=== PATIENT | male | born 1995 | race Two or more races ===

== ENCOUNTER 2020-05-19 13:47 | Inpatient (IN) | payer OTHER ==
[~2020-05-19] VITALS: Ht 182.9 cm; Wt 76.2 kg
[2020-05-19 16:41] LABS: BASOPHILS % (AUTO) 0.3 % (0.0-2.0); EOSINOPHILS % (AUTO) 0.3 % (1.0-6.0); HEMOGLOBIN 16.5 g/dL (13.5-17.5); LYMPHOCYTES # (AUTO) 1.8 K/uL (1.0-4.8); LYMPHOCYTES % (AUTO) 18.6 % (22.0-44.0); MEAN CORPUSCULAR HEMOGLOBIN 29.2 pg (26.0-34.0); MEAN CORPUSCULAR VOLUME 89 fL (80-100); MONOCYTES # (AUTO) 0.6 K/uL (0.1-1.0); MONOCYTES % (AUTO) 6.7 % (2.0-9.0); NEUTROPHILS # (AUTO) 7.1 K/uL (1.8-7.7); NEUTROPHILS % (AUTO) 74.1 % (40.0-70.0); PLATELET COUNT (AUTO) 209 K/uL (150-450); RED BLOOD CELL COUNT(AUTO) 5.64 MIL/uL (4.50-5.90); RED CELL DISTRIBUTION WIDTH 15.2 % (11.5-14.5)
[2020-05-19 16:48] LABS: ANION GAP 12 mmol/L (8-16); CALCIUM, TOTAL 9.9 mg/dL (8.8-10.5); CARBON DIOXIDE 27 mmol/L (22-29); CHLORIDE 103 mmol/L (98-107); CREATININE 1.07 mg/dL (0.60-1.30); GLOMERULAR FILTR. RATE CALC > 60 mL/min (>60); GLUCOSE,RANDOM 88 mg/dL (70-110); SODIUM SERUM 142 mmol/L (136-145); UREA NITROGEN, BLOOD 10 mg/dL (7-18)
[2020-05-19 16:54] LABS: ALANINE AMINOTRANSFERASE 18 U/L (12-78); ALBUMIN 4.6 g/dL (3.4-5.0); ALKALINE PHOSPHATASE 69 U/L (46-116); ASPARTATE AMINOTRANSFERASE 11 U/L (15-37); BILIRUBIN,TOTAL 1.2 mg/dL (0.1-1.0); TOTAL PROTEIN, SERUM 7.9 g/dL (6.4-8.2)
[2020-05-19] MEDS ORDERED: HALOPERIDOL LACTATE 5 MG/ML VIAL IM ONE (17:00)
[2020-05-19] MEDS ORDERED: LORazepam 2 MG/ML VIAL IM ONE (17:00)
[2020-05-19] MEDS ORDERED: HALOPERIDOL 5 MG TABLET PO ONE (17:00)
[2020-05-19] MEDS ORDERED: LORazepam 2 MG TABLET PO ONE (17:00)
[2020-05-19 19:19] LABS: COVID AG,FIA SOURCE NASOPHARYNGEAL
[2020-05-19] MEDS ORDERED: INFLUENZA VIRUS VACCINE QVS 2020-21 (6MO+)/PF 60 MCG/0.5 ML SYRINGE IM ONE (22:30)
[2020-05-20] MEDS ORDERED: MAGNESIUM HYDROXIDE SUSPENSION 30 ML UDCUP PO PRN (07:45)
[2020-05-20] MEDS ORDERED: DOCUSATE SODIUM 100 MG CAPSULE PO PRN (07:45)
[2020-05-20] MEDS ORDERED: PETROLATUM,WHITE 28 GM JELLY TP PRN (07:45)
[2020-05-20] MEDS ORDERED: GuaiFENesin/D-METHORPHAN [SUGAR-FREE] 200-20MG/10 ML SYRUP UDCUP PO PRN (07:45)
[2020-05-20] MEDS ORDERED: LOPERAMIDE HCL 2 MG CAPSULE PO PRN (07:45)
[2020-05-20] MEDS ORDERED: CloNIDine HCL 0.1 MG TABLET PO PRN (07:45)
[2020-05-20] MEDS ORDERED: ALBUTEROL SULFATE HFA 90 MCG/PUFF 8 GM INHALER IH PRN (07:45)
[2020-05-20] MEDS ORDERED: IBUPROFEN 400 MG TABLET PO PRN (07:45)
[2020-05-20] MEDS ORDERED: ONDANSETRON HCL 4 MG TABLET PO PRN (07:45)
[2020-05-20] MEDS ORDERED: MAG HYDROX/AL HYDROX/SIMETH ES 30 ML SUSPENSION UDCUP PO PRN (07:45)
[2020-05-20 09:24] LABS: CHOL/HDL RATIO 3.8 (4.2-7.3)
[2020-05-20] MEDS: HALOPERIDOL 5 MG TABLET PO PRN (21:19)
[2020-05-20] MEDS: LORazepam 2 MG TABLET PO PRN (21:19)
[2020-05-20] MEDS: ZOLPIDEM TARTRATE 10 MG TABLET PO PRN (22:34)
[2020-05-21] MEDS: HALOPERIDOL 5 MG TABLET PO PRN ×3 (03:13→18:22)
[2020-05-21] MEDS: LORazepam 2 MG TABLET PO PRN ×3 (03:13→18:22)
[2020-05-21 08:22] VITALS: BP 93/68
[2020-05-21] MEDS ORDERED: OLANZapine 5 MG TABLET PO SCH (09:00)
[2020-05-21] MEDS: NICOTINE 14 MG/24 HOUR PATCH TD PRN (09:05)
[2020-05-21 09:07] VITALS: BP 106/66
[2020-05-21] MEDS: OLANZapine 10 MG TABLET PO SCH (16:39)
[2020-05-21 16:41] VITALS: BP 97/66
[2020-05-21] MEDS: ZOLPIDEM TARTRATE 10 MG TABLET PO PRN (21:40)
[2020-05-22 01:26] VITALS: BP 103/68
[2020-05-22] MEDS: OLANZapine 10 MG TABLET PO SCH ×2 (08:27→16:19)
[2020-05-22] MEDS: HALOPERIDOL 5 MG TABLET PO PRN ×3 (09:28→20:11)
[2020-05-22] MEDS: LORazepam 2 MG TABLET PO PRN ×3 (09:28→20:12)
[2020-05-22] MEDS: ZOLPIDEM TARTRATE 10 MG TABLET PO PRN (21:36)
[2020-05-22] MEDS: ACETAMINOPHEN 325 MG TABLET PO PRN (23:48)
[2020-05-23 01:09] VITALS: BP 127/86
[2020-05-23] MEDS: HALOPERIDOL 5 MG TABLET PO PRN ×2 (03:06→12:50)
[2020-05-23 08:21] VITALS: BP 119/78
[2020-05-23] MEDS: OLANZapine 10 MG TABLET PO SCH ×2 (09:54→16:41)
[2020-05-23] MEDS: LORazepam 2 MG TABLET PO PRN ×3 (09:54→23:39)
[2020-05-23 16:11] VITALS: BP 124/72
[2020-05-23] MEDS ORDERED: CETIRIZINE HCL 10 MG TABLET PO PRN (18:15)
[2020-05-23] MEDS ORDERED: LORATADINE 10 MG TABLET PO PRN (19:15)
[2020-05-23] MEDS: ZOLPIDEM TARTRATE 10 MG TABLET PO PRN (20:49)
[2020-05-24 01:50] VITALS: BP 116/69
[2020-05-24 08:39] VITALS: BP 124/86
[2020-05-24] MEDS: OLANZapine 10 MG TABLET PO SCH ×2 (09:52→16:14)
[2020-05-24] MEDS: LORazepam 2 MG TABLET PO PRN ×3 (09:52→22:33)
[2020-05-24] MEDS: HALOPERIDOL 5 MG TABLET PO PRN (10:55)
[2020-05-24] MEDS: NICOTINE 14 MG/24 HOUR PATCH TD PRN (10:56)
[2020-05-24 16:14] VITALS: BP 128/82
[2020-05-24] MEDS: ZOLPIDEM TARTRATE 10 MG TABLET PO PRN (20:02)
[2020-05-25 08:27] VITALS: BP 115/60
[2020-05-25] MEDS: OLANZapine 10 MG TABLET PO SCH ×2 (08:27→16:20)
[2020-05-25] MEDS: HALOPERIDOL 5 MG TABLET PO PRN ×3 (08:52→23:52)
[2020-05-25] MEDS: LORazepam 2 MG TABLET PO PRN ×3 (08:52→23:52)
[2020-05-25] MEDS: NICOTINE 14 MG/24 HOUR PATCH TD PRN ×2 (16:23→17:49)
[2020-05-25 16:31] VITALS: BP 117/68
[2020-05-25] MEDS: ZOLPIDEM TARTRATE 10 MG TABLET PO PRN ×2 (19:33→20:41)
[2020-05-25] MEDS: ACETAMINOPHEN 325 MG TABLET PO PRN (20:02)
[2020-05-26] MEDS: OLANZapine 10 MG TABLET PO SCH ×2 (08:03→16:09)
[2020-05-26] MEDS: LORazepam 2 MG TABLET PO PRN ×2 (08:03→18:20)
[2020-05-26] MEDS: NICOTINE 14 MG/24 HOUR PATCH TD PRN (08:04)
[2020-05-26] MEDS: HALOPERIDOL 5 MG TABLET PO PRN ×2 (11:00→19:50)
[2020-05-27] MEDS: ZOLPIDEM TARTRATE 10 MG TABLET PO PRN ×2 (00:58→20:25)
[2020-05-27 06:33] VITALS: BP 118/62
[2020-05-27 08:05] VITALS: BP 113/73
[2020-05-27] MEDS: OLANZapine 10 MG TABLET PO SCH ×2 (09:23→16:21)
[2020-05-27] MEDS: LORazepam 2 MG TABLET PO PRN ×3 (09:23→22:18)
[2020-05-27] MEDS: HALOPERIDOL 5 MG TABLET PO PRN ×3 (09:24→23:05)
[2020-05-27] MEDS: NICOTINE 14 MG/24 HOUR PATCH TD PRN (09:24)
[2020-05-27] MEDS: ACETAMINOPHEN 325 MG TABLET PO PRN (17:47)
[2020-05-28 08:06] VITALS: BP 127/75
[2020-05-28] MEDS: OLANZapine 10 MG TABLET PO SCH ×2 (09:20→17:15)
[2020-05-28] MEDS: LORazepam 2 MG TABLET PO PRN ×2 (09:20→17:46)
[2020-05-28] MEDS: HALOPERIDOL 5 MG TABLET PO PRN ×2 (09:20→17:46)
[2020-05-28 16:14] VITALS: BP 118/75
[2020-05-28] MEDS: LURASIDONE HCL 60 MG TABLET PO SCH (21:13)
[2020-05-28] MEDS: NICOTINE 14 MG/24 HOUR PATCH TD PRN (22:22)
[2020-05-29 00:10] VITALS: BP 118/63
[2020-05-29] MEDS: ZOLPIDEM TARTRATE 10 MG TABLET PO PRN (01:37)
[2020-05-29] MEDS: HALOPERIDOL 5 MG TABLET PO PRN ×2 (01:37→12:23)
[2020-05-29] MEDS: LORazepam 2 MG TABLET PO PRN ×3 (01:37→17:22)
[2020-05-29 08:30] VITALS: BP 124/76
[2020-05-29] MEDS: OLANZapine 10 MG TABLET PO SCH ×2 (10:22→17:22)
[2020-05-29] MEDS: NICOTINE 14 MG/24 HOUR PATCH TD PRN (11:27)
[2020-05-29 16:04] VITALS: BP 126/74
[2020-05-29] MEDS: LURASIDONE HCL 60 MG TABLET PO SCH (20:19)
[2020-05-29] MEDS: ACETAMINOPHEN 325 MG TABLET PO PRN (23:53)
[2020-05-30 00:02] VITALS: BP 140/80
[2020-05-30] MEDS: OLANZapine 10 MG TABLET PO SCH ×2 (10:05→16:48)
[2020-05-30] MEDS ORDERED: ZOLPIDEM TARTRATE 10 MG TABLET PO PRN (13:30)
[2020-05-30] MEDS ORDERED: LORazepam 2 MG TABLET PO PRN (13:30)
[2020-05-30 16:13] VITALS: BP 111/64
[2020-05-30] MEDS: LURASIDONE HCL 60 MG TABLET PO SCH (20:44)
[2020-05-30] MEDS: NICOTINE 14 MG/24 HOUR PATCH TD PRN (21:34)
[2020-05-31] MEDS: ZOLPIDEM TARTRATE 10 MG TABLET PO PRN ×2 (00:22→22:43)
[2020-05-31 01:32] VITALS: BP 133/83
[2020-05-31] MEDS: OLANZapine 10 MG TABLET PO SCH ×2 (09:42→16:14)
[2020-05-31] MEDS: NICOTINE 14 MG/24 HOUR PATCH TD PRN (12:19)
[2020-05-31] MEDS: LORazepam 2 MG TABLET PO PRN ×2 (12:19→16:59)
[2020-05-31 16:05] VITALS: BP 114/76
[2020-05-31] MEDS: LURASIDONE HCL 60 MG TABLET PO SCH (20:01)
[2020-05-31] MEDS: ACETAMINOPHEN 325 MG TABLET PO PRN (20:01)
[2020-06-01] MEDS: LORazepam 2 MG TABLET PO PRN ×3 (00:16→17:36)
[2020-06-01] MEDS: HALOPERIDOL 5 MG TABLET PO PRN (00:49)
[2020-06-01] MEDS: OLANZapine 10 MG TABLET PO SCH ×2 (09:31→16:27)
[2020-06-01] MEDS: LURASIDONE HCL 60 MG TABLET PO SCH (20:08)
[2020-06-01] MEDS: ZOLPIDEM TARTRATE 10 MG TABLET PO PRN (21:43)
[2020-06-01] MEDS: ACETAMINOPHEN 325 MG TABLET PO PRN (23:45)
[2020-06-02] MEDS: HALOPERIDOL 5 MG TABLET PO PRN (00:02)
[2020-06-02] MEDS: LORazepam 2 MG TABLET PO PRN (00:02)
[2020-06-02 00:20] VITALS: BP 131/59
[2020-06-02 08:11] VITALS: BP 123/79
[2020-06-02] MEDS: OLANZapine 10 MG TABLET PO SCH ×2 (09:00→17:00)
[2020-06-02 16:43] VITALS: BP 121/71
[2020-06-02] MEDS: LURASIDONE HCL 60 MG TABLET PO SCH (21:39)
[2020-06-02] MEDS: ZOLPIDEM TARTRATE 10 MG TABLET PO PRN (22:20)
[2020-06-03] MEDS: LORazepam 2 MG TABLET PO PRN ×2 (00:04→17:34)
[2020-06-03 02:34] VITALS: BP 126/76
[2020-06-03 08:21] VITALS: BP_SYST 104; BP_SYST 96; BP_DIAS 26; BP_DIAS 61
[2020-06-03] MEDS: OLANZapine 10 MG TABLET PO SCH (09:00)
[2020-06-03] MEDS: PALIPERIDONE 6 MG ER TABLET PO SCH (16:28)
[2020-06-03 16:32] VITALS: BP 127/75
[2020-06-03] MEDS: HALOPERIDOL 5 MG TABLET PO PRN (17:34)
[2020-06-03] MEDS: NICOTINE 14 MG/24 HOUR PATCH TD PRN (18:45)
[2020-06-03] MEDS: LURASIDONE HCL 60 MG TABLET PO SCH (20:03)
[2020-06-03] MEDS: ZOLPIDEM TARTRATE 10 MG TABLET PO PRN (21:01)
[2020-06-04 04:09] VITALS: BP 112/70
[2020-06-04] MEDS: LORazepam 2 MG TABLET PO PRN ×3 (04:15→18:49)
[2020-06-04] MEDS: HALOPERIDOL 5 MG TABLET PO PRN ×3 (04:55→18:49)
[2020-06-04] MEDS: PALIPERIDONE 6 MG ER TABLET PO SCH ×2 (08:39→16:43)
[2020-06-04] MEDS: NICOTINE 14 MG/24 HOUR PATCH TD PRN (14:25)
[2020-06-04 16:46] VITALS: BP 110/68
[2020-06-04] MEDS: LURASIDONE HCL 60 MG TABLET PO SCH (20:04)
[2020-06-04] MEDS ORDERED: LURA60TA PO (21:22)
[2020-06-04] MEDS ORDERED: PALI6TAB15 PO (21:22)
[2020-06-04] MEDS: ZOLPIDEM TARTRATE 10 MG TABLET PO PRN (21:26)
[2020-06-05 04:50] VITALS: BP 116/68
[2020-06-05] MEDS: PALIPERIDONE 6 MG ER TABLET PO SCH (08:11)
[2020-06-05 08:12] VITALS: BP 118/71
== END 2020-06-05 11:45 | DRG 885 ==
LOC: EMS 13:48 → B2S 19:41
PROVIDERS: ADMIT Psychiatry & Neurology Child & Adolescent Psychiatry; ATTEND Psychiatry & Neurology Child & Adolescent Psychiatry
DX: F20.0 Paranoid schizophrenia (principal); R17 Unspecified jaundice; F41.9 Anxiety disorder, unspecified; F12.10 Cannabis abuse, uncomplicated; E83.51 Hypocalcemia; K59.00 Constipation, unspecified; Z20.828 Contact with and (suspected) exposure to other viral communicable diseases; F19.10 Other psychoactive substance abuse, uncomplicated; Z59.0 Homelessness
CPT/HCPCS: 87081; 87426; G0480; J1630; J2060